=== PATIENT | female | born 1965 | race Two or more races ===

== ENCOUNTER 2022-03-02 15:05 | Emergency (ER) | payer OTHER ==
[~2022-03-02] VITALS: Ht 157.5 cm; Wt 81.8 kg
[~2022-03-02 15:05] MED LIST: ATOR20TA PO; ENAL2.5T7 PO; METF-370 PO
[2022-03-02 17:19] VITALS: BP 164/92
[2022-03-02] MEDS ORDERED: HYDROcodone-ACET 5/325MG TAB PO ONE (18:00)
[2022-03-02] MEDS ORDERED: ONDANSETRON ODT 4 MG TAB PO ONE (18:00)
== END 2022-03-02 19:03 | disposition home or self-care (01) ==
LOC: ER 15:05 → EDBD 15:05 → ER 19:03
DX: S63.502A Unspecified sprain of left wrist, initial encounter (principal); S09.90XA Unspecified injury of head, initial encounter; R07.89 Other chest pain; M54.2 Cervicalgia; E11.9 Type 2 diabetes mellitus without complications; I10 Essential (primary) hypertension; E78.5 Hyperlipidemia, unspecified; Z90.49 Acquired absence of other specified parts of digestive tract; Z90.710 Acquired absence of both cervix and uterus; Z90.89 Acquired absence of other organs; V43.52XA Car driver injured in collision with other type car in traffic accident, initial encounter; Y93.89 Activity, other specified; Y92.410 Unspecified street and highway as the place of occurrence of the external cause; Y99.8 Other external cause status
CPT/HCPCS: 29125; 70450; 71045; 73110; 73564; 93005; 99284; Q0162